=== PATIENT | male | born 1945 | race Caucasian/White ===

== ENCOUNTER 2019-09-08 19:53 | Outpatient (REF) | payer MEDICARE, SELFPAY ==
[2019-09-08 20:12] LABS: BUN 15 mg/dL (7-18); CREATININE 0.51 mg/dL (0.70-1.30); Calcium 9.1 mg/dL (8.5-10.1); Chloride 102 mmol/L (98-107); Glucose 112 mg/dL (74-106); LDL CHOLESTEROL 162 mg/dL (<100); Potassium 4.1 mmol/L (3.5-5.1); Sodium 141 mmol/L (136-145)
[2019-09-08 20:44] LABS: COMMENT (LAB VIEW ONLY) 15.84 mg/dL
== END 2019-09-08 20:13 ==
LOC: NCHCN 19:53
PROVIDERS: PCP Internal Medicine; Visit Provider Internal Medicine
DX: E11.9 Type 2 diabetes mellitus without complications (principal); I10 Essential (primary) hypertension; E78.5 Hyperlipidemia, unspecified
CPT/HCPCS: 80048; 83721; 82043; 82570

== ENCOUNTER 2021-01-26 15:15 | Outpatient (REF) | payer MEDICARE, SELFPAY ==
[2021-01-26 18:54] LABS: ALT 23 U/L (16-63); Anion Gap 10.5 mmol/L (3-11); BUN 13 mg/dL (7-18); CO2 27.5 mmol/L (21.0-32.0); CREATININE 0.6 mg/dL (0.70-1.30); Calcium 8.8 mg/dL (8.5-10.1); Chloride 106 mmol/L (98-107); Glucose 133 mg/dL (74-106); LDL CHOLESTEROL 132 mg/dL (<100); Potassium 4.2 mmol/L (3.5-5.1); Sodium 144 mmol/L (136-145)
== END 2021-01-26 15:16 | disposition home or self-care (01) ==
LOC: NCHCN 15:15
PROVIDERS: PCP Internal Medicine; Visit Provider Internal Medicine
DX: E11.9 Type 2 diabetes mellitus without complications (principal); I10 Essential (primary) hypertension; E78.5 Hyperlipidemia, unspecified
CPT/HCPCS: 80048; 83721; 84460

== ENCOUNTER 2021-08-23 11:43 | Outpatient (REF) | payer MEDICARE, SELFPAY ==
[2021-08-23 19:43] LABS: HCT 46.7 % (40.0-50.0); HGB 14.8 g/dL (13.5-17.5); MCH 28.8 pg (27.0-33.0); MCHC 31.7 % (32.0-36.0); MPV 10.6 fL (8.0-11.0); Platelet Count 290 10^3/uL (130-400); RBC 5.13 10^6/uL (4.36-5.78); RDW-SD 47.4 fL; WBC 9.13 10^3/uL (4.4-10.8)
[2021-08-23 19:48] LABS: Anion Gap 11.3 mmol/L (3-11); BUN 18 mg/dL (7-18); CO2 29.7 mmol/L (21.0-32.0); CREATININE 0.7 mg/dL (0.70-1.30); Calcium 9.3 mg/dL (8.5-10.1); Chloride 101 mmol/L (98-107); Glucose 170 mg/dL (74-106); Potassium 3.9 mmol/L (3.5-5.1); Sodium 142 mmol/L (136-145)
== END 2021-08-23 11:44 | disposition home or self-care (01) ==
LOC: NCHCN 11:43
PROVIDERS: PCP Internal Medicine; Visit Provider Internal Medicine
DX: E11.9 Type 2 diabetes mellitus without complications (principal); I10 Essential (primary) hypertension
CPT/HCPCS: 80048; 85027

== ENCOUNTER 2021-10-31 14:21 | Outpatient (REF) | payer MEDICARE, SELFPAY ==
[2021-10-31 21:14] LABS: COMMENT (LAB VIEW ONLY) 17.76 mg/dL
== END 2021-10-31 14:22 | disposition home or self-care (01) ==
LOC: NCHCN 14:21
PROVIDERS: PCP Internal Medicine; Visit Provider Internal Medicine
DX: E11.9 Type 2 diabetes mellitus without complications (principal); G60.9 Hereditary and idiopathic neuropathy, unspecified; G14 Postpolio syndrome
CPT/HCPCS: 82043; 82570

== ENCOUNTER 2022-11-08 17:09 | Outpatient (REF) | payer MEDICARE, SELFPAY ==
[2022-11-08 20:02] LABS: Anion Gap 5.9 mmol/L (3-11); BUN 28 mg/dL (7-18); CO2 31.1 mmol/L (21.0-32.0); Calcium 9.6 mg/dL (8.5-10.1); Chloride 105 mmol/L (98-107); Glucose 147 mg/dL (74-106); Potassium 4.7 mmol/L (3.5-5.1); Sodium 142 mmol/L (136-145)
[2022-11-08 20:06] LABS: Microalb ug/mg Crea 21.7 ug/mg Cr
== END 2022-11-08 17:10 | disposition home or self-care (01) ==
LOC: NCHCN 17:09
PROVIDERS: PCP Internal Medicine; Visit Provider Internal Medicine
DX: I10 Essential (primary) hypertension (principal); E11.9 Type 2 diabetes mellitus without complications
CPT/HCPCS: 80048; 82043; 82570

== ENCOUNTER 2024-07-05 18:41 | Outpatient (REF) | payer MEDICARE, SELFPAY ==
[2024-07-05 19:37] LABS: HCT 35.7 % (40.0-50.0); HGB 11.9 g/dL (13.5-17.5); MCHC 33.3 % (32.0-36.0); MCV 87 fL (80-95); MPV 10.7 fL (8.0-11.0); Platelet Count 297 10^3/uL (130-400); RDW 13.9 % (11.8-14.1); RDW-SD 44.9 fL
[2024-07-05 20:24] LABS: COMMENT (LAB VIEW ONLY) 50.57 mg/dL; Microalb ug/mg Crea 81.5 ug/mg Cr
[2024-07-05 20:33] LABS: ALT 14 U/L (16-63); AST 17 U/L (15-37); Albumin 3.3 g/dL (3.4-5.0); Alkaline Phosphatase 113 U/L (46-116); Anion Gap 10.1 mmol/L (3-11); BUN 28 mg/dL (7-18); Bilirubin, Total 0.33 mg/dL (0.2-1.0); CO2 27.9 mmol/L (21.0-32.0); CREATININE 1.2 mg/dL (0.70-1.30); Calcium 9.1 mg/dL (8.5-10.1); Chloride 108 mmol/L (98-107); Estimated GFR 62.29 (mL/min/1.73m2); Glucose 137 mg/dL (74-106); NT-proBNP 420 pg/mL (<300); Potassium 3.2 mmol/L (3.5-5.1); Sodium 146 mmol/L (136-145)
== END 2024-07-05 18:42 | disposition home or self-care (01) ==
LOC: NCHCN 18:41
PROVIDERS: PCP Internal Medicine; Visit Provider Internal Medicine
DX: I10 Essential (primary) hypertension (principal)
CPT/HCPCS: 80053; 85027; 82043; 82570; 83880

== ENCOUNTER 2024-08-03 19:26 | Outpatient (REF) | payer MEDICARE, SELFPAY ==
[2024-08-03 20:24] LABS: Anion Gap 4.6 mmol/L (3-11); BUN 55 mg/dL (7-18); CO2 31.4 mmol/L (21.0-32.0); CREATININE 1.4 mg/dL (0.70-1.30); Calcium 9.6 mg/dL (8.5-10.1); Chloride 102 mmol/L (98-107); Estimated GFR 51.77 (mL/min/1.73m2); Glucose 246 mg/dL (74-106); Potassium 4.4 mmol/L (3.5-5.1); Sodium 138 mmol/L (136-145)
== END 2024-08-03 19:27 | disposition home or self-care (01) ==
LOC: NCHCN 19:26
PROVIDERS: PCP Internal Medicine; Visit Provider Internal Medicine
DX: E87.6 Hypokalemia (principal)
CPT/HCPCS: 80048

== ENCOUNTER 2024-11-08 10:43 | Emergency (ER) | payer MEDICARE, SELFPAY ==
[2024-11-08 10:47] VITALS: BP 212/83; PULSE 83; RESP 20; TEMP 36.8; O2SAT 97
[2024-11-08 10:49] VITALS: BP 212/83; PULSE 83; RESP 20; TEMP 36.8; O2SAT 97
--- NOTE | 2024-11-08 11:00 | DI.MRI_ITS ---
Exam(s) MR ANGIO NECK WO EXAM: MRA NECK CAROTID ARTERIES CLINICAL HISTORY: left sided vision loss. TECHNIQUE: Multiplanar multisequence MRI of the neck was performed. CONTRAST MATERIAL: NONE COMPARISON: None. FINDINGS: Aortic arch anatomy is conventional. There is no stenosis the origin of the left common carotid benjamin ry. The brachiocephalic artery is obscured by artifact as is the origin the right common carotid art joel. Above these levels the common carotid arteries ascend with normal luminal diameters. There appears t o be minimal plaque at the left carotid and proximal left internal carotid artery without significant stenosis at this level and the left internal carotid artery in the upper neck is patent. On the right side there is mild circumferential stenosis of the proximal right internal carotid arter y. No tight stenosis Both vertebral arteries are patent and of almost equal diameter. At the skull base both vertebral ar teries contribute to the formation of the basilar artery. There is no evidence of vertebral artery t hrombosis nor vertebral artery dissection. IMPRESSION: Patent carotid arteries in the neck. No significant high-grade stenosis at the carotid bifurcations and proximal internal carotid arteries. Patent vertebral arteries in the neck. Report called by myself to ER physician 11/08/2024 at 12:35 p.m. DATA REPOSITORY:
--- NOTE | 2024-11-08 11:00 | DI.MRI_ITS ---
Exam(s) MR ANGIO BRAIN WO EXAM: MR ANGIO BRAIN WO CLINICAL HISTORY: left sided vision loss TECHNIQUE: Performed on 1.5 rudy unit with [id number] sequence. COMPARISON: No exams were available for comparison FINDINGS: ANTERIOR CIRCULATION: Both internal carotid arteries are patent in the skull base-carotid canals as w ell as within the cavernous sinuses. Supraclinoid aspects of the ICAs are patent bilaterally. A1 se gments are patent bilaterally as are the anterior cerebral arteries. There is no evidence of aneurys m at the level the anterior communicating artery. Both middle cerebral arteries are patent. No obvious stenosis nor intraluminal filling defects. No aneurysms in branches. POSTERIOR CIRCULATION: Basilar artery is formed at the skull base by both vertebral arteries. The po sterior inferior cerebellar arteries originate off of the vertebral arteries at the skull base. The basilar artery ascends with normal luminal diameter. Distally gives off patent bilateral superio r cerebellar arteries. Above this level the left posterior cerebral artery comes off the basilar tip and is patent vessel. The right posterior cerebral artery comes off the basilar artery tip but is o ccluded 1 cm distal to its origin. There is no aneurysm of the tip of the basilar artery nor elsewhere in the [id number]. IMPRESSION: 1. The right posterior cerebral artery is occluded 1 cm distal to its origin. 2. This finding is commensurate with the ipsilateral right occipital lobe infarct as seen on today's brain MRI study. . Report called by myself to ER physician 11/08/2024 at 12:20 p.m. DATA REPOSITORY:
--- NOTE | 2024-11-08 11:00 | RT.EKG_ITS ---
APPROVED REPORT Exam: Resting ECG Reason for Exam: cva Patient Location: E HR:73 bpm ECG Measurements Heart Rate 73 AXIS CA 148 P 72 QRSd 94 QRS 58 QT 350 T 45 QTc 386 Conclusion Sinus rhythm...normal P axis, V-rate 60- 99 Consider anteroseptal infarct...Q >30mS, dimin R, V1-V2
--- NOTE | 2024-11-08 11:00 | DI.MRI_ITS ---
Exam(s) MR BRAIN WO EXAM: MR BRAIN WO CLINICAL HISTORY: left sided vision loss TECHNIQUE: Multiplanar multisequence MRI of the brain was performed. COMPARISON: None. There are no prior brain imaging studies for comparison FINDINGS: CEREBRAL PARENCHYMA: There is no evidence of intracranial hemorrhage, mass effect, or shift of midline structures. There are no extra-axial fluid collections. Ventricles are not enlarged or shifted. There is no significant focal signal abnormality in the cerebellar hemispheres nor within the johana, m idbrain, and thalami. However, there is a prominent area of signal abnormality in the right occipital lobe which is T2 brig ht T1 hypointense and exhibits restricted diffusion, consistent with nonhemorrhagic infarct. There is also a focus of FLAIR bright signal abnormality in the right periventricular white matter me asuring 8 x 6 mm, nonhemorrhagic and not associated with restricted diffusion. Probably related to p rior remote ischemic event. PITUITARY GLAND: No mass nor parasellar abnormality. No obvious abnormality in the cavernous sinuses. FLOW VOIDS: The expected flow void are noted. No evidence of obvious aneurysm nor obvious vascular ma lformation. PARANASAL SINUSES: Mild focal mucosal thickening in the anterior inferior aspect of the left maxillar y sinus. No associated fluid level. There are fusions in both mastoid air cells, left more than rig ht. ORBITS: Previous cataract surgery. IMPRESSION: There is a prominent acute ischemic infarct in the right occipital lobe. See separate MRA dictation. DATA REPOSITORY:
--- NOTE | 2024-11-08 11:06 | W.ED.GENAD ---
Discharge Plan Disposition Patient Disposition: Against Medical Advice Condition: Stable Discharge Details Clinical Impression: Acute CVA (cerebrovascular accident) Primary Care Provider: Dong Lew ED Provider: Mitul Gaspar Home Meds and New Rx's Prescriptions: New clopidogrel 75 mg tablet 75 mg PO DAILY Qty: 30 0RF Continued vitamin B complex Capsule 1 cap PO DAILY cholecalciferol (vitamin D3) 125 mcg (5,000 unit) capsule 125 mcg PO DAILY lisinopril-hydrochlorothiazide 20-12.5 mg tablet 1 tab PO DAILY metformin 500 mg tablet 1,000 mg PO DAILY tamsulosin [Flomax] 0.4 mg capsule 0.4 mg PO DAILY aspirin 81 mg capsule 81 mg PO DAILY No Action CBD 25 mg PO clopidogrel 75 mg tablet 75 mg PO DAILY Discharge Instructions Additional Instructions: You are found to have a stroke which is the cause of your vision loss. Please continue to take aspirin and also Plavix daily. I have given you prescription for 30 days of Plavix with your primary care provider with have to continue. You should also discuss with them starting a statin. You should have a outpatient heart rhythm monitor done. You also should have an echocardiogram done. If you change your mind about hospitalization or have new symptoms such as weakness or changes in speech return to the emergency department for reevaluation. HPI General Mode of arrival: wheelchair. Date/Time Provider Initiated Documentation: 11/08/24 10:45. Limitations to Documentation: no limitations. Information obtained by: patient. History of Present Illness 79 year old M presents to the emergency department with the chief complaint of left sided vision loss, described as moderate, Patient started experiencing this day(s) (4) and it has been constant. No relieving factors improve symptom(s), No exacerbating factors reported . Patient notes no other symptoms.. Patient did receive the following treatments prior to arrival, none Related Data Home Medications ?Medication ?Instructions ?Recorded ?Confirmed CBD 25 mg PO 05/08/22 05/21/22 cholecalciferol (vitamin D3) 125 125 mcg PO DAILY 05/08/22 11/08/24 mcg (5,000 unit) capsule clopidogrel 75 mg tablet 75 mg PO DAILY 05/08/22 11/08/24 lisinopril 20 1 tab PO DAILY 05/08/22 11/08/24 mg-hydrochlorothiazide 12.5 mg tablet metformin 500 mg tablet 1,000 mg PO DAILY 05/08/22 11/08/24 vitamin B complex 1 cap PO DAILY 05/08/22 11/08/24 aspirin 81 mg capsule 81 mg PO DAILY 11/08/24 11/08/24 clopidogrel 75 mg tablet 75 mg PO DAILY #30 tabs 11/08/24 tamsulosin 0.4 mg capsule (Flomax) 0.4 mg PO DAILY 11/08/24 11/08/24 Previous Rx's ?Medication ?Instructions ?Recorded clopidogrel 75 mg tablet 75 mg PO DAILY #30 tabs 11/08/24 Allergies Allergy/AdvReac Type Severity Reaction Status Date / Time losartan (From [facility]) Allergy Unknown Verified 11/08/24 12:41 General Stated Complaint: EyeProblem NOEMY: 3 Review of Systems All systems reviewed & are unremarkable except as noted in HPI and below Constitutional Constitutional: Denies chills, Denies fever(s) and Denies weakness Eyes Eyes: Reports loss of vision Cardiovascular Cardiovascular: Denies chest pain and Denies dyspnea Respiratory Respiratory: Denies cough and Denies dyspnea Gastrointestinal Gastrointestinal: Denies abdominal pain, Denies nausea and Denies vomiting Neurologic Neurologic: Reports loss of vision and Denies weakness Psychiatric Psychiatric: Denies depression Exam Const General: no acute distress Orientation: alert [facility] Head: normal to inspection Ears: external ears normal General nose exam: external nose normal Mouth: moist mucous membranes Eyes General: appearance normal, both eyes and all related structures Periorbital: periorbital findings normal Eyelids: eyelids normal Sclera: sclerae normal EOM: EOM intact bilaterally Neck Neck: normal visual inspection Resp Effort & Inspection: normal respiratory effort and able to speak in complete sentences Cardio Rate: regular rate Skin General skin exam: no rashes or lesions noted Neuro General: patient alert and patient oriented x3 Extrem General: normal to inspection Psych Mental Status: mental status grossly normal Course Vital Signs Vital signs: Vital Signs Temperature 36.8 C 11/08/24 10:47 Pulse 83 11/08/24 10:47 Respiratory Rate 11/08/24 10:47 Blood Pressure 212/83 H 11/08/24 10:47 Pulse Oximetry 97 11/08/24 10:47 Temperature 36.8 C 11/08/24 10:49 Pulse 83 11/08/24 10:49 Respiratory Rate 11/08/24 10:49 Blood Pressure 212/83 H 11/08/24 10:49 Blood Pressure Position Sitting 11/08/24 10:49 Pulse Oximetry 97 11/08/24 10:49 Oxygen Delivery Method Room Air 11/08/24 10:49 Oxygen Flow Rate 0 11/08/24 10:49 Medical Decision Making 79-year-old male with a history of hypertension prior CVA comes in from the [facility] with 4 days of left-sided visual field loss. He went to their office today and had an eye exam and did not find any causes for for his symptoms so referred him here for imaging. He does have complete loss of vision in both eyes in the left side. He does have intact vision in his right visual field. He otherwise has no deficits on neurological exam. I suspect CVA, will obtain labs and I was able to check with MRI and they are able to fit him in expeditiously given his had symptoms for 4 days he is not a lytic or interventional candidate. Patient notes presently has a right occipital infarct, is a 1 cm right posterior cerebral artery occlusion. He met with teleneurology who recommended loading him with aspirin and also Plavix. He should continue this daily. Recommend admission for telemetry monitoring and obtain an echo when able. I discussed the results with him and after discussion he has no desire to stay in the hospital. I discussed the reasons why would want him to be admitted his for recurrent strokes and picking up earlier for other causes of stroke such as A-fib, patient is Medical Decision Making capacity and understands the risks of leaving including permanent and disability and leaving AGAINST MEDICAL ADVICE. I am going to prescribe him a prescription for Plavix. He will follow-up with his PCP as soon as possible and return precautions given. He was also instructed he can return if he has any change in desire to be hospitalized. Differential Diagnosis Differential Diagnosis: CVA,TIA Lab Data Lab results reviewed: Yes I reviewed the patient's lab results. ECG Data Attestation: I personally reviewed and interpreted this ECG (s) as follows: Prior ECG tracings: not available for review Interpretation: sinus rate of 73 pr 148 no stemi Quality:SDOH Health Related Social Needs: No Data to Display PFSH All Active Problems (Updated 11/08/24 @ 14:07 by Mitul Gaspar MD) Acute CVA (cerebrovascular accident) (Acute) Mixed hearing loss, bilateral (Acute) Medical History Advance directive discussed with patient BPH (benign prostatic hyperplasia) Cerumen impaction CVA (cerebral vascular accident) Decreased hearing Diplegia Ear fullness Hematuria, microscopic Hyperlipidemia Hypertension Neoplasm of uncertain behavior of skin Osteopenia Peripheral neuropathy Post poliomyelitis syndrome Scoliosis Type 2 diabetes mellitus Social History Smoking/Tobacco Use Status: Former Tobacco Use Quit Date: 07/28/71 Smoking risk assessment performed?: Yes Drug use: Occasionally Substance use type: marijuana
[2024-11-08 11:26] LABS: Abs Immature Grans 0.04 10^3/uL (0.0-0.06); Absolute Basophil Count 0.06 10^3/uL (0.0-0.2); Absolute Eosinophil Count 0.15 10^3/uL (0.0-0.7); Absolute Monocyte Count 0.74 10^3/uL (0.1-0.8); Absolute Neutrophil Count 6.81 10^3/uL (1.2-6.7); Basophils % 0.6 %; Eosinophils % 1.6 %; HCT 45.9 % (40.0-50.0); HGB 14.2 g/dL (13.5-17.5); Immature Grans % 0.4 %; Lymphocytes % 17.9 %; MCH 27.5 pg (27.0-33.0); MCHC 30.9 % (32.0-36.0); MCV 89 fL (80-95); MPV 10.1 fL (8.0-11.0); Monocytes % 7.8 %; Neutrophils % 71.7 %; Platelet Count 308 10^3/uL (130-400); RBC 5.16 10^6/uL (4.36-5.78); RDW 14.5 % (11.8-14.1); RDW-SD 47.5 fL
[2024-11-08 11:40] LABS: PTT Activated 28.2 sec (20.6-30.2); Prothrombin Time 9.7 sec (9.1-11.1)
[2024-11-08 12:01] LABS: ALT 21 U/L (16-63); AST 12 U/L (15-37); Albumin 4.1 g/dL (3.4-5.0); Alkaline Phosphatase 133 U/L (46-116); Anion Gap 13.5 mmol/L (3-11); BUN 60 mg/dL (7-18); Bilirubin, Total 0.3 mg/dL (0.2-1.0); CO2 20.5 mmol/L (21.0-32.0); CREATININE 1.5 mg/dL (0.70-1.30); Calcium 9.7 mg/dL (8.5-10.1); Chloride 106 mmol/L (98-107); Estimated GFR 47.36 (mL/min/1.73m2); Glucose 148 mg/dL (74-106); Magnesium 2.3 mg/dL (1.8-2.4); Potassium 5.5 mmol/L (3.5-5.1); Sodium 140 mmol/L (136-145); Total Protein 8.6 g/dL (6.4-8.2)
[2024-11-08 12:40] VITALS: BP 168/72; PULSE 77; O2SAT 98
[2024-11-08 12:41] VITALS: PULSE 66; O2SAT 99
[2024-11-08 13:53] VITALS: PULSE 65; O2SAT 98
[2024-11-08 13:55] VITALS: BP 173/63; PULSE 72
[2024-11-08] MEDS: Aspirin 325 MG TAB PO (13:59)
[2024-11-08] MEDS: Clopidogrel 300 MG TAB PO (14:00)
== END 2024-11-08 14:13 | disposition left against medical advice (07) ==
PROVIDERS: Emergency Provider Emergency Medicine; PCP Internal Medicine
DX: I63.59 Cerebral infarction due to unspecified occlusion or stenosis of other cerebral artery (principal); H53.9 Unspecified visual disturbance; I10 Essential (primary) hypertension; E78.5 Hyperlipidemia, unspecified; E11.9 Type 2 diabetes mellitus without complications; Z86.12 Personal history of poliomyelitis; Z87.891 Personal history of nicotine dependence; Z79.82 Long term (current) use of aspirin; Z79.84 Long term (current) use of oral hypoglycemic drugs
CPT/HCPCS: 36415; 70544; 70547; 80053; 93005; 99285; 70551; 83735; 85025; 85610; 85730; 93010

== ENCOUNTER 2024-11-22 13:18 | Outpatient (REF) | payer MEDICARE, SELFPAY ==
[2024-11-22 19:36] LABS: C & S Indicated? C&S Done As Ordered; RBC >50 HPF (0-2); WBC >50 HPF (0-5)
== END 2024-11-22 13:19 | disposition home or self-care (01) ==
LOC: NCHCN 13:18
PROVIDERS: PCP Internal Medicine; Visit Provider Internal Medicine
DX: R31.0 Gross hematuria (principal)
CPT/HCPCS: 81015; 87086

== ENCOUNTER → 2024-11-30 11:57 | Outpatient (BNVA) | payer MEDICARE, SELFPAY | PROVIDERS: PCP Internal Medicine; Referring Provider Internal Medicine; Visit Provider Nurse Practitioner Gerontology | DX: N40.0 Benign prostatic hyperplasia without lower urinary tract symptoms (principal) | CPT/HCPCS: 99214 ==

== ENCOUNTER 2025-03-25 15:40 | Outpatient (REF) | payer MEDICARE, SELFPAY ==
[2025-03-25 19:11] LABS: HCT 38.0 % (40.0-50.0); HGB 12.0 g/dL (13.5-17.5); MCH 28.0 pg (27.0-33.0); MCHC 31.6 % (32.0-36.0); MCV 89 fL (80-95); MPV 11.1 fL (8.0-11.0); Platelet Count 264 10^3/uL (130-400); RBC 4.29 10^6/uL (4.36-5.78); RDW 14.6 % (11.8-14.1); RDW-SD 47.1 fL; WBC 8.65 10^3/uL (4.4-10.8)
[2025-03-25 19:27] LABS: Hemoglobin A1C 6.1 % (<5.7)
[2025-03-25 19:28] LABS: Albumin 3.6 g/dL (3.4-5.0); Anion Gap 8.5 mmol/L (3-11); BUN 32 mg/dL (7-18); CO2 26.5 mmol/L (21.0-32.0); Calcium 8.8 mg/dL (8.5-10.1); Chloride 108 mmol/L (98-107); Estimated GFR 90.58 (mL/min/1.73m2); Glucose 123 mg/dL (74-106); Magnesium 2.0 mg/dL (1.8-2.4); Potassium 4.0 mmol/L (3.5-5.1); Sodium 143 mmol/L (136-145)
== END 2025-03-25 15:41 | disposition home or self-care (01) ==
LOC: NCHCN 15:40
PROVIDERS: PCP Internal Medicine; Visit Provider Internal Medicine
DX: E11.9 Type 2 diabetes mellitus without complications (principal); I10 Essential (primary) hypertension
CPT/HCPCS: 80069; 85027; 83036; 83735

== ENCOUNTER → 2025-04-11 07:59 | Outpatient (BNVA) | payer MEDICARE, SELFPAY | PROVIDERS: PCP Internal Medicine; Referring Provider Internal Medicine; Visit Provider Nurse Practitioner Gerontology | DX: N40.0 Benign prostatic hyperplasia without lower urinary tract symptoms (principal); R31.29 Other microscopic hematuria; I63.9 Cerebral infarction, unspecified; R39.9 Unspecified symptoms and signs involving the genitourinary system | CPT/HCPCS: 99214; 51798 ==

== ENCOUNTER → 2025-04-26 14:26 | Outpatient (BNVA) | payer MEDICARE, SELFPAY | PROVIDERS: PCP Internal Medicine; Referring Provider Internal Medicine; Visit Provider Nurse Practitioner Gerontology | DX: N13.30 Unspecified hydronephrosis (principal); N40.0 Benign prostatic hyperplasia without lower urinary tract symptoms; R31.29 Other microscopic hematuria; Z59.82 Transportation insecurity; Z59.87 Material hardship due to limited financial resources, not elsewhere classified | CPT/HCPCS: 99214 ==

== ENCOUNTER 2025-05-17 19:17 | Outpatient (REF) | payer MEDICARE, SELFPAY ==
[2025-05-17 20:24] LABS: Anion Gap 8.7 mmol/L (3-11); BUN 62 mg/dL (7-18); CO2 24.3 mmol/L (21.0-32.0); Calcium 8.8 mg/dL (8.5-10.1); Chloride 105 mmol/L (98-107); Estimated GFR 56.23 (mL/min/1.73m2); Glucose 126 mg/dL (74-106); Potassium 4.9 mmol/L (3.5-5.1); Sodium 138 mmol/L (136-145)
== END 2025-05-17 19:18 | disposition home or self-care (01) ==
LOC: NCHCN 19:17
PROVIDERS: PCP Internal Medicine; Visit Provider Nurse Practitioner Family
DX: N13.30 Unspecified hydronephrosis (principal); N32.0 Bladder-neck obstruction
CPT/HCPCS: 80048